=== PATIENT | male | born 1950 | race Caucasian/White ===

== ENCOUNTER 2018-08-27 11:31 | Emergency (ER) | payer OTHER, MEDICARE ==
[~2018-08-27] VITALS: Ht 175.3 cm; Wt 90.7 kg
[2018-08-27 11:31] VITALS: BP_SYST 129
[2018-08-27 13:04] LABS: BASOPHILS # (AUTO) 0.1 K/uL (0.0-0.2); BASOPHILS % (AUTO) 0.5 % (0.0-2.0); EOSINOPHILS % (AUTO) 0.1 % (0.0-4.0); HEMATOCRIT 45.1 % (36-54); HEMOGLOBIN 14.3 g/dL (14.0-18.0); LYMPHOCYTES # (AUTO) 3.2 K/uL (1.0-5.5); LYMPHOCYTES % (AUTO) 15.5 % (20.5-51.5); MEAN CORPUSCULAR HEMOGLOBIN 23 pg (27-31); MEAN CORPUSCULAR HGB CONC 32 % (32-36); MEAN CORPUSCULAR VOLUME 71 fL (79.0-98.0); MONOCYTES # (AUTO) 2.2 K/uL (0.0-1.0); MONOCYTES % (AUTO) 10.7 % (1.7-9.3); NEUTROPHILS # (AUTO) 15.1 K/uL (1.8-7.7); NEUTROPHILS % (AUTO) 73.2 % (40.0-70.0); PLATELET COUNT (AUTO) 436 K/uL (130-430); RED BLOOD CELL COUNT(AUTO) 6.32 MIL/uL (4.2-6.2); RED CELL DISTRIBUTION WIDTH 18.6 % (9.0-15.0); WHITE BLOOD COUNT (AUTO) 20.6 K/uL (4.8-10.8)
[2018-08-27 13:27] LABS: CALCIUM 8.9 mg/dL (8.4-11.0); CREATININE 1.44 mg/dL (0.55-1.30)
[2018-08-27 13:32] LABS: ALBUMIN 3.8 g/dL (3.4-4.8); TOTAL BILIRUBIN 0.5 mg/dL (0.0-1.0)
[2018-08-27 13:34] LABS: POTASSIUM 2.5 mmol/L (3.5-5.1)
[2018-08-27] MEDS ORDERED: POTASSIUM CHLORIDE 20 MEQ TAB.PRT.SR PO ONE (14:15)
[2018-08-27] MEDS ORDERED: NS 500 ML IV ONE (14:15)
[2018-08-27] MEDS ORDERED: KCL 10 mEq in D5/0.45NS 1000mL 1,000 ML IV SCH (14:15)
[2018-08-27] MEDS ORDERED: NS 1000 ML IV.SOLN IV ONE (14:15)
[2018-08-27 15:05] LABS: INR 0.9 (0.80-1.20); PROTHROMBIN TIME 9.6 SECS (9.5-12.5)
[2018-08-27 15:27] LABS: BILIRUBIN,URINE NEGATIVE (NEGATIVE); BLOOD, URINE NEGATIVE (NEGATIVE); CLARITY/URINE CLEAR (CLEAR); COLOR,URINE YELLOW (YELLOW); GLUCOSE,URINE NEGATIVE (NEGATIVE); KETONES,URINE TRACE (NEGATIVE); LEUKOCYTE ESTERASE ,URINE NEGATIVE (NEGATIVE); NITRITE, URINE NEGATIVE (NEGATIVE); PH,URINE 5.5 (5.0-8.0); PROTEIN URINE 2+ (NEGATIVE); UROBILINOGEN,URINE 0.2 (0.2-1.0)
[2018-08-27] MEDS ORDERED: ASPIRIN 81 MG TAB.CHEW PO ONE (15:30)
[2018-08-27 15:41] LABS: BACTERIA,URINE FEW /HPF (None Seen); HYALINE CASTS, URINE 0-10 /LPF (None Seen); RBC,URINE 0-3 /HPF (0-3); WBC,URINE 0-3 /HPF (0-3)
== END 2018-08-27 16:23 | disposition left against medical advice (07) ==
LOC: SED 11:31
DX: E87.6 Hypokalemia (principal); R79.89 Other specified abnormal findings of blood chemistry; Z88.8 Allergy status to other drugs, medicaments and biological substances
CPT/HCPCS: 36415; 71045; 80053; 81000; 83605; 83735; 84484; 85025; 85610; 85730; 87040; 87086; 93005; 96365; 99284; J7040

== ENCOUNTER 2021-04-28 10:43 | Emergency (ER) | payer OTHER, MEDICARE, SELFPAY ==
[~2021-04-28] VITALS: Ht 172.7 cm; Wt 102.1 kg
[2021-04-28 10:55] VITALS: BP_SYST 170
--- NOTE | 2021-04-28 10:55 | NUR ---
Pt. was placed in tent for triage for congestion, during triage pt. stated he was here d/t an episode t-1 where he was lost for 11 hours, he had a 1pm appointment at [facility] for a MRI d/t growth in neck and could not find it and drove around with confussion and was lost, arrived here with healthcare administration internship, currently [id number], has extensive health hx.
--- NOTE | 2021-04-28 11:50 | NUR ---
ER at bedside examining patient.
--- NOTE | 2021-04-28 12:49 | NUR ---
pt. to CT
--- NOTE | 2021-04-28 13:03 | NUR ---
pt. back from CT, urine sent, and EKG done
--- NOTE | 2021-04-28 13:40 | NUR ---
Pt. able to swallow with no difficulty
[2021-04-28 13:43] LABS: BASOPHILS % (AUTO) 0.4 % (0.0-2.0); EOSINOPHILS # (AUTO) 0.1 K/uL (0.0-0.4); EOSINOPHILS % (AUTO) 1.1 % (0.0-4.0); HEMATOCRIT 45.4 % (36-54); HEMOGLOBIN 15.1 g/dL (14.0-18.0); LYMPHOCYTES # (AUTO) 1.7 K/uL (1.0-5.5); LYMPHOCYTES % (AUTO) 16.2 % (20.5-51.5); MEAN CORPUSCULAR HEMOGLOBIN 31 pg (27-31); MEAN CORPUSCULAR HGB CONC 33 % (32-36); MEAN CORPUSCULAR VOLUME 92 fL (79.0-98.0); MONOCYTES # (AUTO) 1.1 K/uL (0.0-1.0); MONOCYTES % (AUTO) 10.4 % (1.7-9.3); NEUTROPHILS # (AUTO) 7.4 K/uL (1.8-7.7); NEUTROPHILS % (AUTO) 71.9 % (40.0-70.0); PLATELET COUNT (AUTO) 285 K/uL (130-430); RED BLOOD CELL COUNT(AUTO) 4.91 MIL/uL (4.2-6.2); RED CELL DISTRIBUTION WIDTH 17.8 % (9.0-15.0); WHITE BLOOD COUNT (AUTO) 10.4 K/uL (4.8-10.8)
[2021-04-28 13:54] LABS: ANION GAP 6 (5-15); CALCIUM 9.2 mg/dL (8.4-11.0); CHLORIDE 100 mmol/L (98-107); CREATININE 1.52 mg/dL (0.55-1.30); GLUCOSE 109 mg/dL (70-99); POTASSIUM 4.3 mmol/L (3.5-5.1); SODIUM SERUM 133 mmol/L (136-145); UREA NITROGEN, BLOOD 26 mg/dL (8-21)
[2021-04-28 13:59] LABS: ALANINE AMINOTRANSFERASE 41 U/L (12-78); ALBUMIN 3.6 g/dL (3.4-4.8); ASPARTATE AMINOTRANSFERASE 18 U/L (10-37); TOTAL BILIRUBIN 0.3 mg/dL (0.0-1.0)
[2021-04-28 14:04] LABS: BILIRUBIN,URINE NEGATIVE (NEGATIVE); CLARITY/URINE CLEAR (CLEAR); COLOR,URINE YELLOW (YELLOW); GLUCOSE,URINE NEGATIVE (NEGATIVE); KETONES,URINE NEGATIVE (NEGATIVE); LEUKOCYTE ESTERASE ,URINE NEGATIVE (NEGATIVE); NITRITE, URINE NEGATIVE (NEGATIVE); PH,URINE 5.5 (5.0-8.0); PROTEIN URINE NEGATIVE (NEGATIVE); UROBILINOGEN,URINE 0.2 (0.2-1.0)
[2021-04-28 14:10] LABS: INR 0.9 (0.80-1.20); PROTHROMBIN TIME 9.9 SECS (9.5-12.5)
[2021-04-28 14:15] LABS: BLOOD, URINE TRACE (NEGATIVE)
[2021-04-28 14:25] LABS: BARBITURATE, URINE NEGATIVE (NEG <=200)
[2021-04-28 14:26] LABS: BENZODIAZEPINE, URINE NEGATIVE (NEG <=150); CANNABINOID, URINE NEGATIVE (NEG <=50); COCAINE, URINE NEGATIVE (NEG <=150); METHAMPHETAMINES SCREEN,URINE NEGATIVE (NEG <=500); OPIATE, URINE POSITIVE (NEG <=100); PHENCYCLIDINE SCREEN,URINE NEGATIVE (NEG <=25); UR TRICYCLIC ANTIDEPRESSANTS POSITIVE (NEG <=300); URINE AMPHETAMINE POSITIVE (NEG <=500); URINE METHADONE NEGATIVE (NEG <=200); URINE OXYCODONE SCREEN NEGATIVE (NEG <=100); URINE PROPOXYPHENE SCREEN NEGATIVE (NEG <=300)
[2021-04-28 14:55] LABS: BACTERIA,URINE None Seen /HPF (None Seen); MUCUS,URINE 1+ /LPF (None Seen); WBC,URINE NONE SEEN /HPF (0-3)
--- NOTE | 2021-04-28 15:40 | NUR ---
ER in tent discussing test results with patient.
[2021-04-28 16:25] VITALS: BP_SYST 154
--- NOTE | 2021-04-28 16:25 | NUR ---
Patient left AMA,given written and verbal discharge instructions and verbalizes understanding. ER Dr. Dexter and Dr. Shoemaker discussed with patient the results and treatment provided. Patient in stable condition. ID arm band removed. IV catheter removed intact and dressing applied, no active bleeding. Patient educated on pain management and to follow up with PMD. Pain Scale 0. Opportunity for questions provided and answered. Copies of lab results given to pt. as requested and per Dr. Shoemaker.
== END 2021-04-28 16:25 | disposition home or self-care (01) ==
LOC: SED 10:43
DX: F41.0 Panic disorder [episodic paroxysmal anxiety] (principal); N28.9 Disorder of kidney and ureter, unspecified; Z88.8 Allergy status to other drugs, medicaments and biological substances; Z79.899 Other long term (current) drug therapy; Z20.822 Contact with and (suspected) exposure to COVID-19
CPT/HCPCS: 36415; 70450-TC; 71045; 76376; 80053; 80307; 81000; 84484; 85025; 85610-TC; 85730-TC; 93005; 99285